=== PATIENT | female | born 1995 | race Caucasian/White ===

== ENCOUNTER → 2017-07-24 13:51 | Outpatient (CLI) | payer BC, OTHER, MEDICAID, SELFPAY ==
[2017-07-24 16:14] LABS: Add Manual Diff / Slide Review NO; Basophils Percent Auto 0.1 % (0-2); Eosinophils Percent Auto 0.6 % (2-4); Hematocrit 34.4 % (36-46); Lymphocytes Percent Auto 14.1 % (25-40); Mean Corpuscular HGB Conc 34.8 % (30-36); Mean Corpuscular Hemoglobin 32.6 PG (26-34); Mean Corpuscular Volume 93.7 fL (80-100); Monocytes Percent Auto 7.6 % (3-14); Neutrophils Absolute Auto 10000 /uL (3000-5900); Neutrophils Percent Auto 77.6 % (50-75); Platelet Count 276 X10^3/uL (150-400); Red Blood Cell Count 3.67 X10^6/uL (4.0-5.2); Red Cell Distribution Width 13.5 % (11.6-14.8); White Blood Cell Count 12.9 X10^3/uL (4.5-11.0)
[2017-07-24 16:58] LABS: GTT (PREG) 1 Hour PP 50gm Dose 89 mg/dL (76-139)
== END ==
PROVIDERS: Visit Provider Family Medicine
DX: Z3A.27 27 weeks gestation of pregnancy (principal)
CPT/HCPCS: 82950; 85025; 86900; 86901

== ENCOUNTER → 2017-09-04 12:16 | Outpatient (CLI) | payer BC, OTHER, MEDICAID, SELFPAY ==
--- NOTE | 2017-09-04 12:18 | DI.US.S_ITS ---
PROCEDURE: US OB LIMITED INDICATIONS: EFW OUTSIDE/PRIOR DATING DATA: Last menstrual period (LMP): 01/09/17. LMP-based estimated date of delivery (HERLINDA): 10/16/17. First dating scan (date and location): 03/05/17 Estimated date of delivery (HERLINDA) from first dating scan: 10/15/17. TECHNIQUE: Real-time scanning was performed of the fetus, with image documentation. Endovaginal scanning: No COMPARISON: [facility], , OB COMPLETE 14WKS OR MORE, 05/29/2017, 10:11. FINDINGS: A single living intrauterine gestation is present. Presentation: Vertex. Placenta: Placental position is anterior, without previa. Amniotic fluid index: 29.2 cm, normal range is 5-24 cm. heart rate: 121 beats per minute. Maternal cervical canal: 4.1 cm long. biometrics: Biparietal diameter: 35 weeks 1 day Head circumference: 35 weeks 2 days Abdominal circumference: 36 weeks 5 days Femur length: 33 weeks Estimated gestational age from initial scan: 34 weeks 1 day Composite gestational age from present scan: 35 weeks Estimated weight and percentile: 2688 g, 82nd percentile Measurement variability for biometric dating: +/- 7 days from 14 weeks to 15 weeks 6 days gestation, +/- 10 days from 16 weeks to 21 weeks 6 days gestation, +/- 2 weeks from 22 weeks to 27 weeks 6 days gestation, +/- 3 weeks for 28 weeks gestation or later. weight reference: 4500 g or EFW >90/95% is considered macrosomia or large for gestational age. EFW <10% is small for gestational age. EFW 5% or less is considered intra-uterine growth restriction. Other: Not applicable. IMPRESSION: 1. Single living IUP redemonstrated and interval growth is normal. 2. Polyhydramnios with BRIDGET measuring 29.2 cm. Dictated by: Andrei TERRY Interpreted: Jesus Blake MD on 09/04/2017 at 12:51 Approved by: Jesus Blake M.D. on 09/04/2017 at 13:44
== END ==
PROVIDERS: Visit Provider Family Medicine
DX: O26.843 Uterine size-date discrepancy, third trimester (principal); Z3A.35 35 weeks gestation of pregnancy
CPT/HCPCS: 76815

== ENCOUNTER → 2017-09-25 15:04 | Outpatient (CLI) | payer BC, OTHER, MEDICAID, SELFPAY ==
[2017-09-26 13:16] LABS: Strep Grp B PCR NEG for Grp B Strep
== END ==
PROVIDERS: Visit Provider Family Medicine
DX: Z3A.37 37 weeks gestation of pregnancy (principal)
CPT/HCPCS: 87653

== ENCOUNTER 2017-10-02 09:27 | Outpatient (CLI) | payer BC, OTHER, MEDICAID, SELFPAY ==
[2017-10-02 09:57] LABS: Add Manual Diff / Slide Review NO; Basophils Percent Auto 0.4 % (0-2); Eosinophils Percent Auto 0.2 % (2-4); Hematocrit 35.2 % (36-46); Hemoglobin 12.3 g/dL (12.0-16.0); Mean Corpuscular HGB Conc 35.1 % (30-36); Mean Corpuscular Hemoglobin 33.1 PG (26-34); Mean Corpuscular Volume 94.4 fL (80-100); Monocytes Percent Auto 7.6 % (3-14); Neutrophils Absolute Auto 10300 /uL (3000-5900); Neutrophils Percent Auto 76.8 % (50-75); Platelet Count 245 X10^3/uL (150-400); Red Blood Cell Count 3.73 X10^6/uL (4.0-5.2); Red Cell Distribution Width 13.4 % (11.6-14.8); White Blood Cell Count 13.4 X10^3/uL (4.5-11.0)
[2017-10-02 10:07] LABS: Alanine Aminotransferase 19 IU/L (9-52); Albumin 3.6 g/dL (3.5-5.0); Albumin Globulin Ratio 1.2 (1.0-2.8); Alkaline Phosphatase 133 U/L (38-126); Aspartate Aminotransferase 19 IU/L (14-36); Bilirubin Total 0.4 mg/dL (0.2-1.3); Blood Urea Nitrogen 6 mg/dL (7-17); Calcium 9.3 mg/dL (8.4-10.2); Carbon Dioxide 24 mmol/L (22-32); Chloride 103 mmol/L (98-107); Estimated Glomerular Filt Rate > 60.0 mL/min (>60); Globulin 2.9 g/dL (1.7-4.1); Glucose 91 mg/dL (70-100); HEMOLYSIS < 15 (0-50); Sodium 135 mmol/L (137-145); Total Protein 6.5 g/dL (6.3-8.2)
[2017-10-02 10:22] LABS: Creatinine Urine Random 68.3 mg/dL
[2017-10-02 10:36] LABS: Protein (Total) Urine Random 12 mg/dL (0-12); Protein Creatinine Ratio Urine 0.17 GRAM/24H
--- NOTE | 2017-10-02 10:59 | PM.OBTRLD ---
Visit Information Visit Information Date of evaluation: 10/02/17 Primary OB Provider: Lolis Amador Reason for Evaluation: Yes other Comments/Additional reasons for admission: elevated blood pressure Objective Labs Result Diagrams: 10/02/17 09:48 10/02/17 09:48 Labs: Laboratory Results - last 24 hr 10/02/17 10/02/17 10/02/17 09:48 09:48 10:00 WBC 13.4 H RBC 3.73 L Hgb 12.3 Hct 35.2 L MCV 94.4 MCH 33.1 MCHC 35.1 RDW 13.4 Plt Count 245 Neut % (Auto) 76.8 H Lymph % (Auto) 15.0 L [place] % (Auto) 7.6 Eos % (Auto) 0.2 L Baso % (Auto) 0.4 Neut # (Auto) 87153 H Sodium 135 L Potassium 4.0 Chloride 103 Carbon Dioxide 24 BUN 6 L Creatinine 0.50 L Estimated GFR > 60.0 BUN/Creatinine Ratio 12.0 Glucose 91 Calcium 9.3 Total Bilirubin 0.4 AST 19 ALT 19 Alkaline Phosphatase 133 H Total Protein 6.5 Albumin 3.6 Globulin 2.9 Albumin/Globulin Ratio 1.2 U Random Total Protein 12 Urine Creatinine 68.3 Protein/Creatinin Ratio 0.17 Evaluation Evaluation Baseline heart rate: 130 Variability: Moderate (11-25) monitor accelerations: Present monitor decelerations: Absent Category of Tracing: I Laboratory results: Laboratory Tests 10/02/17 10/02/17 10/02/17 09:48 09:48 10:00 WBC 13.4 H RBC 3.73 L Hgb 12.3 Hct 35.2 L MCV 94.4 MCH 33.1 MCHC 35.1 RDW 13.4 Plt Count 245 Neut % (Auto) 76.8 H Lymph % (Auto) 15.0 L [place] % (Auto) 7.6 Eos % (Auto) 0.2 L Baso % (Auto) 0.4 Neut # (Auto) 61308 H Sodium 135 L Potassium 4.0 Chloride 103 Carbon Dioxide 24 BUN 6 L Creatinine 0.50 L Estimated GFR > 60.0 BUN/Creatinine Ratio 12.0 Glucose 91 Calcium 9.3 Total Bilirubin 0.4 AST 19 ALT 19 Alkaline Phosphatase 133 H Total Protein 6.5 Albumin 3.6 Globulin 2.9 Albumin/Globulin Ratio 1.2 U Random Total Protein 12 Urine Creatinine 68.3 Protein/Creatinin Ratio 0.17 Diagnosis, Plan/Disposition Final Diagnosis (1) Elevated blood pressure affecting in third trimester, antepartum: Current Visit: Yes Status: Acute Plan/Disposition Plan: Most likely gestational HTN with BPs gradually increasing, but pt not yet with documented values consistently elevated far enough apart. Recommend that she check BP at home daily. Plan for IOL at 39 weeks. Consent signed today. OB Disposition: home
--- NOTE | 2017-10-02 11:04 | P.TNLD_ITS ---
Visit Information Visit Information Date of evaluation: 10/02/17 Primary OB Provider: Lolis Amador Reason for Evaluation: Yes other Comments/Additional reasons for admission: elevated blood pressure Objective Labs Result Diagrams: 10/02/17 09:48 10/02/17 09:48 Labs: Laboratory Results - last 24 hr 10/02/17 10/02/17 10/02/17 09:48 09:48 10:00 WBC 13.4 H RBC 3.73 L Hgb 12.3 Hct 35.2 L MCV 94.4 MCH 33.1 MCHC 35.1 RDW 13.4 Plt Count 245 Neut % (Auto) 76.8 H Lymph % (Auto) 15.0 L [place] % (Auto) 7.6 Eos % (Auto) 0.2 L Baso % (Auto) 0.4 Neut # (Auto) 87546 H Sodium 135 L Potassium 4.0 Chloride 103 Carbon Dioxide 24 BUN 6 L Creatinine 0.50 L Estimated GFR > 60.0 BUN/Creatinine Ratio 12.0 Glucose 91 Calcium 9.3 Total Bilirubin 0.4 AST 19 ALT 19 Alkaline Phosphatase 133 H Total Protein 6.5 Albumin 3.6 Globulin 2.9 Albumin/Globulin Ratio 1.2 U Random Total Protein 12 Urine Creatinine 68.3 Protein/Creatinin Ratio 0.17 Evaluation Evaluation Baseline heart rate: 130 Variability: Moderate (11-25) monitor accelerations: Present monitor decelerations: Absent Category of Tracing: I Laboratory results: Laboratory Tests 10/02/17 10/02/17 10/02/17 09:48 09:48 10:00 WBC 13.4 H RBC 3.73 L Hgb 12.3 Hct 35.2 L MCV 94.4 MCH 33.1 MCHC 35.1 RDW 13.4 Plt Count 245 Neut % (Auto) 76.8 H Lymph % (Auto) 15.0 L [place] % (Auto) 7.6 Eos % (Auto) 0.2 L Baso % (Auto) 0.4 Neut # (Auto) 81185 H Sodium 135 L Potassium 4.0 Chloride 103 Carbon Dioxide 24 BUN 6 L Creatinine 0.50 L Estimated GFR > 60.0 BUN/Creatinine Ratio 12.0 Glucose 91 Calcium 9.3 Total Bilirubin 0.4 AST 19 ALT 19 Alkaline Phosphatase 133 H Total Protein 6.5 Albumin 3.6 Globulin 2.9 Albumin/Globulin Ratio 1.2 U Random Total Protein 12 Urine Creatinine 68.3 Protein/Creatinin Ratio 0.17 Diagnosis, Plan/Disposition Final Diagnosis (1) Elevated blood pressure affecting in third trimester, antepartum: Current Visit: Yes Status: Acute Plan/Disposition Plan: Most likely gestational HTN with BPs gradually increasing, but pt not yet with documented values consistently elevated far enough apart. Recommend that she check BP at home daily. Plan for IOL at 39 weeks. Consent signed today. OB Disposition: home
== END 2017-10-02 10:58 | disposition home or self-care (01) ==
LOC: LABOR 09:38 → OB 14:14
PROVIDERS: Visit Provider Family Medicine
DX: O13.3 Gestational [pregnancy-induced] hypertension without significant proteinuria, third trimester (principal); Z3A.38 38 weeks gestation of pregnancy
CPT/HCPCS: 36415; 59025; 80053; 82570; 84156; 85025; G0378; G0379

== ENCOUNTER 2017-10-08 18:05 | Inpatient (IN) | payer BC, OTHER, MEDICAID, SELFPAY ==
[2017-10-08 19:06] LABS: Add Manual Diff / Slide Review NO; Basophils Percent Auto 0.6 % (0-2); Eosinophils Percent Auto 0.2 % (2-4); Hematocrit 34.7 % (36-46); Lymphocytes Percent Auto 15.4 % (25-40); Mean Corpuscular HGB Conc 34.7 % (30-36); Mean Corpuscular Volume 95.3 fL (80-100); Monocytes Percent Auto 8.7 % (3-14); Neutrophils Absolute Auto 10400 /uL (3000-5900); Neutrophils Percent Auto 75.1 % (50-75); Platelet Count 273 X10^3/uL (150-400); Red Blood Cell Count 3.64 X10^6/uL (4.0-5.2); Red Cell Distribution Width 13.3 % (11.6-14.8); White Blood Cell Count 13.8 X10^3/uL (4.5-11.0)
[2017-10-08 19:47] VITALS: BP 136/76
[2017-10-08] MEDS: DINOPROSTONE VAG (CERVIDIL) 10 MG VAG (20:57)
--- NOTE | 2017-10-09 08:31 | P.HPOB_ITS ---
OB HPI Date/Time Date of admission: 10/08/17 Date Patient Seen: 10/09/17 Time Patient Seen: 07:50 History of Present Illness Chief complaint: EVAL OF LABOR : 1 Para: 0 Estimated Date of Delivery: 10/16/17 Estimated Gestational Age (weeks): 39w0d Narrative: Sarina Wilson is a 22 year old at 39w0d gestation presenting for IOL for gestational hypertension. The pt reports that she has been feeling well at home. No concerning headaches, vision changes, RUQ pain, LE swelling. Her BPs have been in normal range for the past week, but prior to that had been elevated. Mild cramping, but no LOF or vaginal bleeding. Indications Indication for induction OB: other (gestational hypertension) History of Present care: good care Dating criteria: LMP confirmed by 1st trimester US Ultrasounds: normal mid trimester US Obstetrical complications: gestational hypertension Medical complications: none Preadmission Labs Blood type: A (-) negative -: Antibody screen: negative, GBS status: negative, HBsAG: negative, HIV: negative and RPR/VDLR: negative -: Chlamydia screen: not detected and Gonorrhea screen: not detected -: Rubella: immune HCT: 36.5 HCAB: negative 1 hr GTT: 89 Evaluation Evaluation Baseline heart rate: 145 Variability: Moderate (11-25) monitor accelerations: Absent monitor decelerations: Absent Contraction Frequency (minutes): 6 Uterine Contraction Intensity: Mild Category of Tracing: I Cervical dilation (cm): 1 Cervical effacement (%): 80 station: -1 Laboratory results: Laboratory Tests 10/08/17 10/08/17 18:40 18:40 WBC 13.8 H RBC 3.64 L Hgb 12.0 Hct 34.7 L MCV 95.3 MCH 33.0 MCHC 34.7 RDW 13.3 Plt Count 273 Neut % (Auto) 75.1 H Lymph % (Auto) 15.4 L [place] % (Auto) 8.7 Eos % (Auto) 0.2 L Baso % (Auto) 0.6 Neut # (Auto) 09223 H Blood Type A Negative Antibody Screen Negative PFSH Family History Father Hypertension Social History marital status: unmarried,single details: recently from partner household members: family lives independently: Yes leisure activities: clubs seatbelt use: always Smoking Status: Never smoker alcohol intake: never substance use type: does not use Meds Home Medications Medication Instructions Recorded Confirmed Type vit-iron fum-folic ac 1 cap PO QDAY #0 03/09/17 History [Mynatal] diphenoxylate-atropine 2.5 mg PO Q2HP PRN #30 05/17/17 Rx Allergies Allergy/AdvReac Type Severity Reaction Status Date / Time No Known Allergies Allergy Uncoded 06/19/17 12:49 Exam Const General: cooperative, healthy appearing, comfortable, well developed and well groomed Orientation: alert, awake and oriented x3 Resp Effort & Inspection: normal respiratory effort Auscultation: clear to auscultation bilaterally Cardio Rate: regular rate Rhythm: regular rhythm GI Palpation: soft and No tender Extrem General: edema (trace) Objective Labs Result Diagrams: 10/08/17 18:40 Labs: Laboratory Results - last 24 hr 10/08/17 10/08/17 18:40 18:40 WBC 13.8 H RBC 3.64 L Hgb 12.0 Hct 34.7 L MCV 95.3 MCH 33.0 MCHC 34.7 RDW 13.3 Plt Count 273 Neut % (Auto) 75.1 H Lymph % (Auto) 15.4 L [place] % (Auto) 8.7 Eos % (Auto) 0.2 L Baso % (Auto) 0.6 Neut # (Auto) 38305 H Blood Type A Negative Antibody Screen Negative Assessment and Plan (1) 39 weeks gestation of : Current visit: Yes Status: Acute (2) Gestational hypertension: Current visit: Yes Status: Acute Plan: Plan: 22yo at 39w0d here for IOL for gestational HTN. BPs have remained in normal range overnight. Pt asymptomatic. Received cervidil overnight, with minimal cervical change. GBS negative, Rh negative. - Expectant management, anticipate - Start pitocin, titrate as tolerated - Plan to AROM when able - FHT reassuring - GBS negative, no prophylaxis indicated - Epidural when desires - Encouraged ambulation - Rh negative, send cord blood after delivery
[2017-10-09] MEDS: OXYTOCIN PREMIX 30 UNIT/500 ML PLAST..BAG IV (09:00)
[2017-10-09] MEDS: LACTATED RINGERS 1,000 ML 100 ML IV ×2 (09:00→15:14)
--- NOTE | 2017-10-09 15:41 | PM.OBPNLAB ---
Date/Time Date Patient Seen: 10/09/17 Time Patient Seen: 15:00 Pain Control Comments: Regular painful contractions, breathing through them Pelvic Exam Dilation (cm): 6 Effacement (%): 90 station: -1 Amniotic membrane status: Ruptured Comments: After informed consent, AROM performed with production of clear fluid Contractions Contractions on admission: none Monitor mode: External Pitocin rate (mU/min): 10 Contraction frequency (min): 2 Contraction duration (min): 1 Contraction pattern: Regular Contraction intensity: Strong/Firm Status status: Category l Heart Rate Baseline: 150 Monitor Accelerations: Present Monitor Decelerations: Absent Monitor Variability: Moderate Assessment and Plan Assessment: active labor and induction ongoing Comments: 22yo at 39w0d here for IOL for gestational HTN. Pt with good cervical change on pitocin, AROM now performed with clear fluid. BPs remain in appropriate range. GBS negative, Rh negative. - Expectant management, anticipate - Continue pitocin, titrate as tolerated - FHT reassuring - GBS negative, no prophylaxis - Rh negative, cord blood sent after delivery - Continue to monitor BPs closely
--- NOTE | 2017-10-09 23:29 | P.PCNOB_ITS ---
Events: Labor Induction (for gestational HTN) Delivery date: 10/09/17 Induction method: other (cervidil) Delivery augmentation: rupture of membranes and pitocin Delivery monitor: external FHT Route of delivery: vacuum extraction Indication for instrumentation: maternal exhaustion Episiotomy description: None Laceration description: Perineal - 2nd Degree (with left sulcal extension) Delivery repair: chromic (3-O) Estimated blood loss (mL): 250 Anesthesia type: Epidural Complications: None Narrative: PROCEDURE: at 38w6d presented for IOL for gestational HTN and was admitted to Labor and Delivery. The patient progressed through the 1st stage over 11.5 hours. She received cervidil followed by pitocin for induction. AROM was performed with clear fluid present. Pain was controlled with an epidural. The patient progressed through the 2nd stage over 2 hours. Indication for operative vaginal delivery was assessed to be secondary to maternal exhaustion. Patient was evaluated and noted to have adequate pain control. Patient counseled on risks/benefits/alternatives of vacuum [forceps] assisted delivery. Risks were discussed and they included but were not limited to a need for an episiotomy, pressure amado on the baby, lacerations to the baby's scalp/face, serious damage including skull fracture, the need to proceed with an abdominal procedure, , paralysis of the baby's arms and/or legs, neurological impairment of the baby. Alternatives would include CS or further observation depending on status. Questions were answered and the patient verbalized an understanding and decided to proceed. Cervix completely dilated and maternal bladder emptied. Vacuum cup of the [place] [employer]ni[employer] applied to the flexion point without difficulty and during contractions, pressure applied between 400-600 mmHg as indicated in the green zone of the pressure gauge. delivered after 3 pulls with 0 pop-offs over an intact perineum. Total duration of application of the vacuum was 4 minutes. The anterior shoulder and remainder of the infant was delivered without difficulty. Cord clamped and cut after delay of 1 minute. Infant delivered to maternal abdomen. Occipital-parietal cephalohematoma with small abrasion noted on baby. APGARs 8/9. The perineum and vagina were inspected with 2nd degree perineal laceration with left sulcal extension. It was repaired with 3-O Chromic. DELIVERY DATE/TIME: 10/09/17, 22:34 PREPROCEDURE DIAGNOSIS: Intrauterine at 38w6d Gestational HTN GBS negative RH positive POSTPROCEDURE DIAGNOSIS: Intrauterine at 39w0d, delivered Same as preprocedure ROM APPEARANCE: Clear BABY A WEIGHT: 8lb3.6oz BABY A NUCHAL CORD: No BABY A # CORD VESSELS: 3 BABY A CORD GASES OBTAINED: No PLACENTA DELIVERY TIME: 22:39 PLACENTA APPEARANCE: Intact [place] Baby 1: Infant gender: Female Presentation: vertex position: Right Occiput Anterior Placenta delivery description: Spontaneous cord vessel description: 3 Vessels score (1 min): 8 score (5 min): 9
[2017-10-10] MEDS: IBUPROFEN 600 MG TABLET PO ×3 (01:33→17:33)
[2017-10-10] MEDS: OXYCODONE/ACETAMINOPHEN 5/325 TABLET 1 TAB PO ×2 (05:51→20:59)
[2017-10-10] MEDS: PRENATAL VIT,CALC/IRON/FOLIC 1 TABLET 1 TAB PO (08:37)
[2017-10-10] MEDS: DOCUSATE 250 MG CAPSULE PO (08:37)
--- NOTE | 2017-10-10 09:43 | PM.OBPN.1 ---
Subjective - OB Interval history: The patient reports that she is doing well. She has breast CA without significant difficulty. Her lochia was decreasing appropriately. Her pain is adequately controlled. She primarily is having low abdominal cramping. She has been ambulating and voiding without difficulty. She has not yet passed flatus. [place] baby status: doing well feeding status: exclusively breast feeding Date Patient Seen: 10/10/17 Time Patient Seen: 09:00 Exam Narrative Exam Narrative: General: No acute distress, sitting comfortably on bed, appears well CV: Regular rate and rhythm, no murmurs Respiratory: Clear to auscultation bilaterally Abdomen: Fundus firm below the umbilicus, appropriately tender, nondistended, normoactive bowel sounds Extremities: Trace edema bilaterally Objective Labs Result Diagrams: 10/08/17 18:40 Labs: Laboratory Results - last 24 hr 10/10/17 08:50 Maternal Bleed Negative Assessment & Plan (1) 39 weeks gestation of : Status: Acute Current Visit: No (2) Gestational hypertension: Status: Acute Current Visit: Yes (3) (spontaneous vaginal delivery): Status: Acute Current Visit: Yes Plan Comments: 22-year-old day 1. Status post vacuum assisted vaginal delivery for maternal exhaustion. Patient is doing well. No complications at this time. - normal care - continue breast feeding support - will need RhoGAM due to O positive baby Time Spent With Patient Total time spent is greater than 50% in coordination of care (as documented) at patient's floor/unit and/or counseling patient: 25 - 35 minutes
[2017-10-10] MEDS: RHO(D) IMMUNE GLOBULIN 1,500 UNIT SYRINGE 1500 UNIT IM (17:33)
[2017-10-10] MEDS: LANOLIN OINT 7 GM 1 APPLIC TOP (17:33)
[2017-10-11] MEDS: IBUPROFEN 600 MG TABLET PO ×2 (01:11→08:22)
[2017-10-11] MEDS: PRENATAL VIT,CALC/IRON/FOLIC 1 TABLET 1 TAB PO (08:22)
[2017-10-11] MEDS: DOCUSATE 250 MG CAPSULE PO (08:22)
--- NOTE | 2017-10-11 09:02 | P.DS_ITS ---
Discharge Providers Date of admission: 10/08/17 18:05 Primary care physician: Lolis Amador MD Consults: 10/09/17 23:46 Consult to [facility] Routine Comment: Discharge provider: Lolis Amador MD Summary Date Patient Seen: 10/12/17 Time Patient Seen: 08:00 Hospital Course: The patient presented for induction of labor due to gestational hypertension. She received Cervidil and then Pitocin for induction, with AROM being performed with production of clear fluid. The patient received an epidural for pain control. She progressed to complete, but due to maternal exhaustion had a vacuum assisted vaginal delivery without complications at 10:54pm. A second- degree perineal laceration with left sulcal extension was then repaired. The patient tolerated delivery well. there are no complications. At the time of discharge the patient was voiding, ambulating, passing flatus without difficulty. Her lochia was decreasing appropriately. Her pain was adequately controlled. She is breast-feeding with good latch. The patient plans to use OCPs for contraception. Peripartum Data Infant Delivery Method: Assisted Delivery (vacuum-assisted ) Laceration description: Perineal - 2nd Degree Episiotomy description: None Procedures: Spontaneous vaginal delivery Repair 2nd degree laceration with sulcal extension complications: none Discharge Diagnosis (1) 39 weeks gestation of : Status: Acute (2) Gestational hypertension: Status: Acute (3) Status post vacuum-assisted vaginal delivery: Status: Acute Status at Discharge Functional status at discharge: independent ambulation Overall status at discharge: patient is progressing back to baseline Time Spent with Patient Total time spent providing and/or coordinating discharge services: Greater than 30 minutes Objective Labs Result Diagrams: 10/08/17 18:40 Labs: Laboratory Results - last 24 hr 10/10/17 08:50 Maternal Bleed Negative Discharge Plan Discharge Plan Patient Disposition: Home, Self-Care Discharge Med Rec/Prescriptions Prescriptions: New acetaminophen 325 mg Tablet 650 mg PO Q6HR PRN (Reason: Pain, Mild (1-3)) Qty: 30 RF: 0 benzocaine-menthol [Dermoplast (with menthol)] 20-0.5 % Aerosol 1 spray Topical Q1H PRN (Reason: perineal pain) Qty: 15 RF: 0 ibuprofen 600 mg Tablet 600 mg PO Q6H PRN (Reason: Pain, Mild (1-3)) Qty: 30 RF: 0 docusate sodium 250 mg Capsule 250 mg PO DAILY Qty: 30 RF: 0 lanolin [Uyu-[id number]-Lveuru] Cream 1 applic Topical PRN PRN (Reason: Tenderness) Qty: 15 RF: 0 Continue vit-iron fum-folic ac [Mynatal] 1 EACH capsule 1 cap PO QDAY Qty: 0 RF: 0 Discontinued diphenoxylate-atropine 2.5 MG/0.025 MG tablet 2.5 mg PO Q2HP PRN (Reason: d) RF: 0 Follow up/Referrals: Lolis Amador MD [Primary Care Provider] - 6 Weeks (Follow up with Dr. Amador at [facility] on at 10:00 AM. ) Provider Discharge Instructions Diet: Regular Activity: No intercourse for 6 weeks Visit Report/Discharge Packet Instructions: DI for Labor and Delivery, Vaginal Visit Report Forms: Stroke Signs & Symptoms Discharge Data Primary Care Provider: Lolis Amador Attending Provider: Lolis Amador Admit Date/Time: 10/08/17 18:05 Discharges patient from system. Discharge Date/Time: 10/11/17 11:20
[2017-10-11 09:40] VITALS: BP 141/88; PULSE 92; RESP 16; TEMP 36.8
== END 2017-10-11 11:20 | disposition home or self-care (01) | DRG 560 ==
PROVIDERS: Admitting Provider Family Medicine; PCP Family Medicine; Visit Provider Family Medicine
DX: O13.4 Gestational [pregnancy-induced] hypertension without significant proteinuria, complicating childbirth (principal); O75.81 Maternal exhaustion complicating labor and delivery; Z3A.39 39 weeks gestation of pregnancy; Z37.0 Single live birth; O70.1 Second degree perineal laceration during delivery
CPT/HCPCS: 01967; 36415; 59050; 59200; 59409; 85025; 85461; 86850; 86900; 86901; G0379; J2590; J2790

== ENCOUNTER → 2018-05-16 08:57 | Outpatient (CLI) | payer MEDICAID, SELFPAY ==
[2018-05-16 10:31] LABS: HCG Quantitative /Beta subunit < 2.39 mIU/mL
== END ==
PROVIDERS: PCP Family Medicine; Visit Provider Family Medicine
DX: N91.2 Amenorrhea, unspecified (principal)
CPT/HCPCS: 36415; 84702

== ENCOUNTER → 2018-10-09 11:08 | Outpatient (CLI) | payer OTHER, MEDICAID, SELFPAY | PROVIDERS: PCP Family Medicine; Visit Provider Family Medicine | DX: J03.91 Acute recurrent tonsillitis, unspecified (principal) | CPT/HCPCS: 87070 ==

== ENCOUNTER → 2018-12-30 12:41 | Outpatient (CLI) | payer OTHER, MEDICAID, SELFPAY ==
--- NOTE | 2018-12-30 12:43 | DI.RAD.S_ITS ---
PROCEDURE: XR ABDOMEN 1V INDICATIONS: severe constipation, examine stool load TECHNIQUE: One view of the abdomen acquired. COMPARISON: None. FINDINGS: Surgical changes and devices: None. Bowel: Bowel gas pattern is normal. Large amount of stool Soft tissues: No suspicious abdominal calcifications. Visualized solid organ contours appear normal in size. Bones: No suspicious bony lesions. IMPRESSION: Large amount of stool. No specific evidence of bowel obstruction seen at this time although if the patient's symptoms do not improve, continued surveillance with abdominal series radiographs could be performed. Dictated by: Jesus Blake M.D. on 12/30/2018 at 16:31 Approved by: Jesus Blake M.D. on 12/30/2018 at 16:32
== END ==
PROVIDERS: PCP Family Medicine; Visit Provider Family Medicine
DX: K59.00 Constipation, unspecified (principal)
CPT/HCPCS: 74018

== ENCOUNTER → 2019-02-24 14:17 | Outpatient (CLI) | payer OTHER, MEDICAID, SELFPAY ==
[2019-02-24 15:02] LABS: Influenza A - CEPHEID Flu A NEGATIVE (NEGATIVE); Influenza B - CEPHEID Flu B NEGATIVE (NEGATIVE)
== END ==
PROVIDERS: PCP Family Medicine; Visit Provider Family Medicine
DX: R50.9 Fever, unspecified (principal)
CPT/HCPCS: 87502

== ENCOUNTER → 2019-05-11 17:04 | Outpatient (CLI) | payer OTHER, MEDICAID, SELFPAY ==
--- NOTE | 2019-05-11 17:09 | DI.RAD.S_ITS ---
PROCEDURE: XR CERVICAL SPINE 2V OR 3V INDICATIONS: r/o bony abnormality TECHNIQUE: 3 view(s) of the cervical spine were acquired. COMPARISON: None. FINDINGS: Bones: No fractures or dislocations to the T1 level. The lateral masses of C1 appear intact on the odontoid view. No suspicious bony lesions. Soft tissues: No prevertebral soft tissue swelling. IMPRESSION: Unremarkable radiographic examination of cervical spine. Dictated by: Niall Frederick M.D. on 05/11/2019 at 17:44 Approved by: Niall Frederick M.D. on 05/11/2019 at 17:46
--- NOTE | 2019-05-11 17:09 | DI.RAD.S_ITS ---
PROCEDURE: XR THORACIC SPINE 3V INDICATIONS: r/o bony abnormality TECHNIQUE: 3 views of the thoracic spine were acquired. COMPARISON: None. FINDINGS: Bones: No fractures or dislocations. No suspicious bony lesions. 12 pairs of ribs are noted, and appear intact where visualized. Soft tissues: No paravertebral stripe thickening. IMPRESSION: Unremarkable radiographic examination of the thoracic spine. Dictated by: Niall Frederick M.D. on 05/11/2019 at 17:46 Approved by: Niall Frederick M.D. on 05/11/2019 at 17:47
== END ==
PROVIDERS: PCP Family Medicine; Referring Provider Physician Assistant; Visit Provider Physician Assistant
DX: M54.2 Cervicalgia (principal); M62.838 Other muscle spasm
CPT/HCPCS: 72040; 72072

== ENCOUNTER → 2021-04-19 18:28 | Outpatient (CLI) | payer OTHER, MEDICAID, SELFPAY | PROVIDERS: PCP Family Medicine; Visit Provider Physician Assistant | DX: J02.9 Acute pharyngitis, unspecified (principal) | CPT/HCPCS: 87070; 87077; 87880 ==